=== PATIENT | male | born 1940 | race Caucasian/White ===

== ENCOUNTER 2020-06-11 22:05 | Emergency (ER) | payer OTHER ==
[~2020-06-11] VITALS: Ht 172.7 cm; Wt 85.0 kg
--- NOTE | 2020-06-11 22:40 | NUR ---
Dr. Ferreira at bedside for MSE.
[2020-06-11] MEDS ORDERED: VANCOMYCIN IV 1,000 MG in IV DEXTROSE 5% 250 ML IV ONE (22:45)
[2020-06-11] MEDS ORDERED: ALBUTEROL SULFATE 2.5 MG/3 ML NEBU NEB ONE (22:45)
[2020-06-11] MEDS ORDERED: IPRATROPIUM BROMIDE 0.5 MG/2.5 ML NEBU NEB ONE (22:45)
[2020-06-11] MEDS ORDERED: IPRATROPIUM BROMIDE 0.5 MG/2.5 ML NEBU ONE (22:47)
[2020-06-11] MEDS ORDERED: ALBUTEROL SULFATE 2.5 MG/3 ML NEBU ONE (22:47)
[2020-06-11] MEDS ORDERED: VANCOMYCIN IV 200 ML ONE (23:25)
--- NOTE | 2020-06-11 23:25 | NUR ---
Ultrasound at bedside.
[2020-06-11] MEDS ORDERED: AZITHROMYCIN IV 500 MG in IV DEXTROSE 5% 250 ML IV ONE (23:30)
[2020-06-11] MEDS ORDERED: CEFTRIAXONE 1 G in IV DEXTROSE 5% 50 ML IV ONE (23:30)
[2020-06-11 23:32] LABS: BASOPHILS % (AUTO) 0.5 % (0.0-2.0); EOSINOPHILS # (AUTO) 0.1 K/uL (0.0-0.7); EOSINOPHILS % (AUTO) 1.1 % (0.0-7.0); HEMATOCRIT 30.9 % (36.7-47.1); HEMOGLOBIN 10.1 g/dL (12.5-16.3); LYMPHOCYTES # (AUTO) 0.7 K/uL (20.0-40.0); LYMPHOCYTES % (AUTO) 12.9 % (20.5-51.5); MEAN CORPUSCULAR HEMOGLOBIN 29.9 uug (23.8-33.4); MEAN CORPUSCULAR HGB CONC 33 g/dL (32.5-36.3); MEAN CORPUSCULAR VOLUME 91.2 fL (73.0-96.2); MONOCYTES # (AUTO) 0.5 K/uL (2.0-10.0); NEUTROPHILS # (AUTO) 4.1 K/uL (1.8-8.9); NEUTROPHILS % (AUTO) 75.5 % (38.5-71.5); PLATELET COUNT (AUTO) 156 K/uL (152-348); RED BLOOD CELL COUNT(AUTO) 3.39 MIL/uL (4.06-5.63); WHITE BLOOD COUNT (AUTO) 5.5 K/uL (3.6-10.2)
[2020-06-11] MEDS ORDERED: AZITHROMYCIN 500MG/ D5W 250ML IVPB **ER PYXIS ONLY IV ONE (23:33)
[2020-06-11] MEDS ORDERED: CEFTRIAXONE /D5W 50ML IVPB **ER PYXIS IV ONE (23:33)
[2020-06-11 23:43] LABS: CREATININE 0.9 mg/dL (0.6-1.3); POTASSIUM 4.2 mmol/L (3.5-5.1)
[2020-06-11 23:55] LABS: BILIRUBIN,TOTAL 0.6 mg/dL (0.2-1.0)
[2020-06-12] MEDS ORDERED: ASPI81TA31 PO (00:06)
[2020-06-12] MEDS ORDERED: ATEN25TA PO ×2 (00:09→00:12)
[2020-06-12] MEDS ORDERED: CLOP75TA33 PO (00:13)
[2020-06-12] MEDS ORDERED: FLUO10CA29 PO (00:13)
[2020-06-12] MEDS ORDERED: FURO40TA5 PO (00:14)
[2020-06-12] MEDS ORDERED: FUROSEMIDE 40 MG/4 ML VIAL IV ONE (00:15)
[2020-06-12] MEDS ORDERED: LISI10TA5 PO (00:15)
[2020-06-12] MEDS ORDERED: ROSU5TAB PO (00:16)
[2020-06-12] MEDS ORDERED: TIOT18CA3 IH (00:17)
[2020-06-12] MEDS ORDERED: MELA5TAB PO (00:18)
[2020-06-12] MEDS ORDERED: OLAN5TAB30 PO (00:18)
[2020-06-12] MEDS ORDERED: ALBU18HF2 INH (00:21)
[2020-06-12] MEDS ORDERED: CEPH500C2 PO (00:21)
[2020-06-12] MEDS ORDERED: FUROSEMIDE 40 MG/4 ML VIAL ONE (00:22)
--- NOTE | 2020-06-12 01:23 | NUR ---
Dr. Ferreira speaking with [place] MD Dr. Mcmahon.
--- NOTE | 2020-06-12 05:10 | NUR ---
Received call back from [facility], spoke with Benson, with transfer information. Patient going to [facility], Accepting MD is Dr. Jeff Clarke. Patient going to Tele room #5111, number to report to , ALS with [facility] eta [id number].
--- NOTE | 2020-06-12 05:20 | NUR ---
[facility] arrived to ER to transport patient to [facility]. Report and documentation given to EMT. Patient out of ER via Ambulance gurney, no acute signs of distress, VSS, all belongings taken.
--- NOTE | 2020-06-12 05:28 | NUR ---
Report given to Erwin YAÑEZ [facility].
== END 2020-06-12 05:33 | disposition short-term general hospital (02) ==
LOC: ER 22:08
DX: J44.0 Chronic obstructive pulmonary disease with (acute) lower respiratory infection (principal); J18.9 Pneumonia, unspecified organism; J44.1 Chronic obstructive pulmonary disease with (acute) exacerbation; Z99.81 Dependence on supplemental oxygen; J96.20 Acute and chronic respiratory failure, unspecified whether with hypoxia or hypercapnia; Z20.828 Contact with and (suspected) exposure to other viral communicable diseases; L03.115 Cellulitis of right lower limb; D64.9 Anemia, unspecified; E78.5 Hyperlipidemia, unspecified; I11.0 Hypertensive heart disease with heart failure; I50.33 Acute on chronic diastolic (congestive) heart failure; I25.10 Atherosclerotic heart disease of native coronary artery without angina pectoris; Z95.1 Presence of aortocoronary bypass graft; F31.81 Bipolar II disorder; E11.9 Type 2 diabetes mellitus without complications; S81.811D Laceration without foreign body, right lower leg, subsequent encounter; X58.XXXD Exposure to other specified factors, subsequent encounter; Z79.82 Long term (current) use of aspirin; Z79.02 Long term (current) use of antithrombotics/antiplatelets; Z95.0 Presence of cardiac pacemaker; Z87.891 Personal history of nicotine dependence; Z95.2 Presence of prosthetic heart valve
CPT/HCPCS: 36415; 71045; 80053; 83880; 84484; 85025; 85730; 87040 ×2; 87426; 93005; 93971; 94640; 96365; 96367; 96375; 99291; J0456; J0696; J1940; J3370; U0003; 70030-TC; A4663; J3590